=== PATIENT | female | born 1945 | race Caucasian/White ===

== ENCOUNTER → 2018-07-15 | Outpatient (CLI) | payer MEDICARE | LOC: M RAD 11:11 | DX: J18.9 Pneumonia, unspecified organism (principal); R91.8 Other nonspecific abnormal finding of lung field | CPT/HCPCS: 71250 ==

== ENCOUNTER 2018-08-02 07:20 | Day surgery (SDC) | payer MEDICARE ==
[2018-08-02] MEDS ORDERED: ONDANSETRON 4MG/2ML VIAL (J2405) As Ordered (08:18)
[2018-08-02] MEDS ORDERED: dexameTHASONE 4 MG/ML 1ML VIAL (J1100) As Ordered (08:18)
[2018-08-02] MEDS ORDERED: LIDOCAINE 2% INJ 100 MG/5 ML SDV (FOR ANES.) As Ordered (08:18)
[2018-08-02] MEDS ORDERED: ROCURONIUM BROMIDE 50 MG/5 ML VIAL As Ordered (08:18)
[2018-08-02] MEDS ORDERED: fentaNYL 100 MCG/2 ML INJECTION (J3010) As Ordered (08:18)
[2018-08-02] MEDS ORDERED: PROPOFOL 200 MG/20 ML VIAL As Ordered (08:18)
[2018-08-02] MEDS ORDERED: MIDAZOLAM INJ 2 MG/2 ML VIAL (J2250) As Ordered (08:18)
[2018-08-02] MEDS ORDERED: NEOSTIGMINE 10 MG/10 ML VIAL (J2710) As Ordered (08:37)
[2018-08-02] MEDS ORDERED: GLYCOPYRROLATE INJ 0.2 MG/ML 2 ML VIAL As Ordered (08:37)
[2018-08-02] MEDS: LR 1,000 ML IV (08:42)
[2018-08-02] MEDS: EPINEPHrine 1MG/10ML SYRINGE 1.5IN As Ordered (09:04)
[2018-08-02] MEDS: THROMBIN SOLN 5,000 UNITS VIAL As Ordered (09:04)
[2018-08-02] MEDS: LIDOCAINE VISCOUS 2% SOLN 15ML UDC As Ordered (09:05)
[2018-08-02] MEDS: CETACAINE SPRAY 5GM As Ordered (10:06)
[2018-08-02] MEDS: LIDOCAINE 1% SDV INJ 30 ML VIAL As Ordered (10:20)
[2018-08-02] MEDS ORDERED: ePHEDrine SULFATE 25 MG/5 ML(5MG/ML) SYRINGE As Ordered (10:40)
[2018-08-02] MEDS ORDERED: ONDANSETRON 4MG/2ML VIAL (J2405) IV (11:45)
[2018-08-02] MEDS ORDERED: LR 1,000 ML IV (11:45)
[2018-08-02] MEDS ORDERED: fentaNYL 100 MCG/2 ML INJECTION (J3010) IV (11:45)
[2018-08-02 15:01] LABS: APPEARANCE CLOTTED (CLEAR); BAL DIFF IF INDICATED? YES (NO); COLOR RED (COLORLESS); SOURCE BRON ALVEOLAR LAVAGE
[2018-08-02 15:07] LABS: MONOCYTES/MACROPHAGES, BAL 5 %
[2018-08-02 21:23] LABS: CC BAL DIFF EXAM CYTOCENTRIFUGE
== END 2018-08-02 12:39 | disposition home or self-care (01) ==
LOC: M SDC 12:39
DX: C34.32 Malignant neoplasm of lower lobe, left bronchus or lung (principal); J98.11 Atelectasis; R91.8 Other nonspecific abnormal finding of lung field; R91.1 Solitary pulmonary nodule; J18.9 Pneumonia, unspecified organism; J44.9 Chronic obstructive pulmonary disease, unspecified; I10 Essential (primary) hypertension; M12.9 Arthropathy, unspecified; M54.9 Dorsalgia, unspecified; R06.02 Shortness of breath; R06.2 Wheezing; Z79.899 Other long term (current) drug therapy; Z79.01 Long term (current) use of anticoagulants; Z87.891 Personal history of nicotine dependence; Z96.1 Presence of intraocular lens; Z96.651 Presence of right artificial knee joint
CPT/HCPCS: 31624

== ENCOUNTER → 2018-08-23 | Outpatient (CLI) | payer MEDICARE | LOC: M PLARAD 14:42 | DX: C34.32 Malignant neoplasm of lower lobe, left bronchus or lung (principal); M89.9 Disorder of bone, unspecified; N28.89 Other specified disorders of kidney and ureter | CPT/HCPCS: 78815 ==

== ENCOUNTER → 2018-08-24 | Outpatient (CLI) | payer MEDICARE ==
[~2018-08-24] MED LIST: ISOVUE-370 76% 100ML VIAL (Q9967) As Ordered
== END ==
LOC: M RAD 09:45
DX: C34.90 Malignant neoplasm of unspecified part of unspecified bronchus or lung (principal); I67.82 Cerebral ischemia; M89.9 Disorder of bone, unspecified
CPT/HCPCS: Q9967

== ENCOUNTER → 2018-08-26 | Outpatient (CLI) | payer MEDICARE ==
[~2018-08-26] MED LIST changes: +GASTROGRAFIN SOLUTION 30ML (Q9963) As Ordered
== END ==
LOC: M RAD 10:57
DX: C34.90 Malignant neoplasm of unspecified part of unspecified bronchus or lung (principal); R93.421 Abnormal radiologic findings on diagnostic imaging of right kidney; R93.422 Abnormal radiologic findings on diagnostic imaging of left kidney
CPT/HCPCS: Q9963

== ENCOUNTER → 2018-09-01 | Outpatient (CLI) | payer MEDICARE | LOC: M ONCR 09:52 | DX: C79.51 Secondary malignant neoplasm of bone (principal); C34.32 Malignant neoplasm of lower lobe, left bronchus or lung | CPT/HCPCS: G0463 ==

== ENCOUNTER → 2018-09-05 | Outpatient (CLI) | payer MEDICARE | LOC: M RAD 10:38 | DX: C34.90 Malignant neoplasm of unspecified part of unspecified bronchus or lung (principal) ==

== ENCOUNTER 2018-09-13 13:00 | Outpatient (RCR) | payer MEDICARE ==
--- NOTE | 2018-09-08 10:45 | RADONC ---
RADIATION ONCOLOGY SIMULATION NOTE: DATE: 09/07/2018 CHART NUMBER: [id number] Ms. Landis was taken to the CT scan for CT simulation of her pelvic/femur field. CT was accomplished without difficulty or discomfort. Radiation treatment planning is underway and radiation treatments will begin subsequently. An immobilization device was created and will be used throughout the course of treatment. It was created without difficulty or discomfort. I was physically present throughout the course of CT simulation.
[~2018-09-13 13:00] MED LIST changes: +/LOR25TA OR; +/WARF25TA OR; +ACET65TA OR; +ASCO500T PO; +ASPI325T OR; +BREO1INH PO; +BUSP5TA PO; +CALC500T49 OR; +CALC600T57 PO; +CITA-229 PO; +COLA100C2 OR; +DIOV80TA OR; +ESCI10TA2 PO; +FERR324T12 PO; -GASTROGRAFIN SOLUTION 30ML (Q9963) As Ordered; +GLUC500T3 OR; +GLUCOSAMINE PLUS MSM OR; -ISOVUE-370 76% 100ML VIAL (Q9967) As Ordered; +KLOR10TA OR; +KLOR10TA76 PO; +NEUR300C PO; +NEXI20CA OR; +OMEGCAP9 PO; +OMEP40CA2 PO; +PANT40TA3 PO; +PERC5TAB12 PO; +PERC5TAB8 OR; +PLAV1TAB2 PO; +PRAV10TA4 PO; +PREDOPD OU; +PROAAER10 INH; +SYMB16INH INH; +TESS100C PO; +VALS160T PO; +VALS1TAB47 PO; +[UNRECOGNIZED DRUG - OTHER]; +[UNRECOGNIZED DRUG - OTHER] OR; +gabapentin OR; +omega 3 OR
[2018-09-19] MEDS ORDERED: MORP20SO3 PO (15:49)
[2018-09-19] MEDS ORDERED: HYOS125TA PO (15:49)
[2018-09-19] MEDS ORDERED: LORA0.5T11 PO (15:49)
[2018-09-20] MEDS ORDERED: NYST50SS PO (10:24)
== END 2018-09-21 ==
LOC: M ONCR 13:00
PROVIDERS: ATTEND Radiology Radiation Oncology
DX: C79.51 Secondary malignant neoplasm of bone (principal); C34.82 Malignant neoplasm of overlapping sites of left bronchus and lung